=== PATIENT | male | born 2000 | race African-American/Black ===

== ENCOUNTER 2019-04-01 19:24 | Emergency (ER) | payer OTHER ==
[~2019-04-01] VITALS: Ht 180.3 cm; Wt 68.0 kg
[2019-04-01] MEDS ORDERED: UNICOMPLEX M TA1 TA1 PO (19:47)
[2019-04-01 21:22] VITALS: BP 117/77
== END 2019-04-01 21:20 | disposition home or self-care (01) ==
LOC: ER 19:24
DX: M54.2 Cervicalgia (principal); R07.89 Other chest pain; V43.52XA Car driver injured in collision with other type car in traffic accident, initial encounter; Y93.89 Activity, other specified; Y92.89 Other specified places as the place of occurrence of the external cause; Y99.8 Other external cause status